=== PATIENT | female | born 1955 | race African-American/Black ===

== ENCOUNTER 2016-12-17 12:20 | Inpatient (IN) | payer MEDICARE, OTHER ==
[~2016-12-17] VITALS: Ht 157.5 cm; Wt 106.6 kg
[~2016-12-17 12:20] MED LIST: DIVA250T4 PO; QUET25TA PO; VENL37.53 PO; ZOLP10TA2 PO
--- NOTE | 2016-12-17 12:25 | NUR ---
PT BIB RA 881, FROM [facility] FOR RECTAL BLEEDING X 3 WEEKS. PT ALSO COMPLAINS OF RECTAL PAIN. PLACED PT ON MONITOR. AWAITING MD ORDER
--- NOTE | 2016-12-17 12:31 | NUR ---
AT BEDSIDE FOR EVAL
--- NOTE | 2016-12-17 12:35 | NUR ---
LFA #20 IV ACCESS. BLOOD SAMPLE COLLECTED SENT TO LAB
--- NOTE | 2016-12-17 12:46 | NUR ---
PT TAKEN TO CT VIA GREG
[2016-12-17 12:47] LABS: BASOPHILS # (AUTO) 0.1 /CMM (0.0-0.2); BASOPHILS % (AUTO) 2.4 % (0.0-2.0); EOSINOPHILS # (AUTO) 0.2 /CMM (0.0-0.7); EOSINOPHILS % (AUTO) 3.5 % (0.0-6.0); HEMATOCRIT 39 % (33-45); HEMOGLOBIN 12.8 g/dL (11.5-14.8); LYMPHOCYTES # (AUTO) 2.4 /CMM (0.8-4.8); LYMPHOCYTES % (AUTO) 43.1 % (20.0-44.0); MEAN CORPUSCULAR HEMOGLOBIN 32 PG (26.0-33.0); MEAN CORPUSCULAR HGB CONC 33 g/dl (31.0-36.0); MEAN CORPUSCULAR VOLUME 98 fL (82-100); MONOCYTES # (AUTO) 0.5 /CMM (0.1-1.30); MONOCYTES % (AUTO) 7.9 % (2.0-12.0); NEUTROPHILS # (AUTO) 2.5 /CMM (1.8-8.9); NEUTROPHILS % (AUTO) 43.1 % (43.0-81.0); PLATELET COUNT (AUTO) 131 /CMM (150-450); RDW COEFFICIENT OF VARIATION 12.4 (11.5-15.0); RED BLOOD CELL COUNT(AUTO) 3.95 MIL/uL (4.0-5.2); WHITE BLOOD COUNT (AUTO) 5.7 K/uL (4.3-11.0)
[2016-12-17] MEDS ORDERED: ONDANSETRON HCL/PF 4 MG/2 ML VIAL ONE (12:50)
[2016-12-17] MEDS ORDERED: IV SET PRIMARY PUMP SET 1 EA INFUS.SET MC ONE ×3 (12:50→15:41)
[2016-12-17] MEDS ORDERED: IV NS 0.9% 1,000 ML ONE (12:50)
[2016-12-17] MEDS ORDERED: HYDROMORPHONE 1 MG/1 ML DISP.SYRIN ONE (12:50)
[2016-12-17] MEDS ORDERED: HYDROMORPHONE INJ 2 MG/ML DISP.SYRIN IV ONE (13:00)
[2016-12-17] MEDS ORDERED: ONDANSETRON HCL/PF 4 MG/2 ML VIAL IVP ONE (13:00)
[2016-12-17] MEDS ORDERED: IV NS 0.9% 1,000 ML BAG IV ONE (13:00)
--- NOTE | 2016-12-17 13:19 | NUR ---
LAB AT BEDSIDE REDRAW BLOOD. FIRST BLOOD SAMPLE HEMOLYZE
--- NOTE | 2016-12-17 13:19 | NUR ---
URINE SAMPLE COLLECTED SENT TO LAB
--- NOTE | 2016-12-17 13:27 | NUR ---
PAGED DR HICKS
[2016-12-17] MEDS ORDERED: FLAGYL/NS RTU 500 MG/100 ML PIGGYBACK IV ONE (13:30)
[2016-12-17] MEDS ORDERED: LEVOFLOXACIN 750 MG /D5W 150ML PIGGYBACK IV ONE (13:30)
[2016-12-17] MEDS ORDERED: METRONIDAZOLE 500MG/ NS 100ML 100 ML IV ONE (13:31)
[2016-12-17] MEDS ORDERED: LEVOFLOXACIN 750 MG /D5W 150ML 150 ML IV ONE (13:31)
[2016-12-17] MEDS ORDERED: SECONDARY IV SET 1 EA INFUS.SET MC ONE ×3 (13:32→21:49)
[2016-12-17 13:35] LABS: APPEARANCE,URINE CLEAR (CLEAR); BILIRUBIN,URINE NEGATIVE (NEGATIVE); BLOOD, URINE NEGATIVE Ery/uL (NEGATIVE); COLOR,URINE YELLOW (YELLOW); KETONES,URINE NEGATIVE (NEGATIVE); LEUKOCYTE ESTERASE ,URINE NEGATIVE (NEGATIVE); NITRITE, URINE NEGATIVE (NEGATIVE); PH,URINE 6.5 (5.0-8.0); PROTEIN,URINE NEGATIVE (NEGATIVE); UGLUCOSE NEGATIVE (NEGATIVE); UROBILINOGEN,URINE 0.2 EU/dL (0.2)
[2016-12-17 13:50] LABS: INR 0.96 (0.87-1.13); PROTHROMBIN TIME 10.3 SECS (9.5-12.7)
--- NOTE | 2016-12-17 13:59 | NUR ---
ADMITTING HOSPITALIST DR HICKS AT BEDSIDE
[2016-12-17] MEDS ORDERED: METO100T3 PO (14:02)
[2016-12-17] MEDS ORDERED: ALLO100T PO (14:02)
[2016-12-17] MEDS ORDERED: DOCU250C75 PO (14:02)
[2016-12-17] MEDS ORDERED: CALC0.253 PO (14:02)
[2016-12-17] MEDS ORDERED: CHOL200026 PO (14:02)
[2016-12-17] MEDS ORDERED: FERR-58 PO (14:02)
[2016-12-17] MEDS ORDERED: CLON0.5T PO (14:02)
[2016-12-17] MEDS ORDERED: QUET200T PO (14:02)
[2016-12-17] MEDS ORDERED: LISI10TA5 PO (14:02)
[2016-12-17] MEDS ORDERED: LEVE500T9 PO (14:02)
[2016-12-17] MEDS ORDERED: AMLO5TAB2 PO (14:02)
[2016-12-17] MEDS ORDERED: SIMV20TA6 PO (14:02)
[2016-12-17] MEDS ORDERED: FOLI1TAB16 PO (14:02)
[2016-12-17] MEDS ORDERED: VENL150C58 PO (14:02)
[2016-12-17] MEDS ORDERED: FURO40TA5 PO (14:02)
--- NOTE | 2016-12-17 14:22 | NUR ---
GAVE REPORT TO MONIKA RIBEIRO [facility] [phone] .
[2016-12-17 14:34] LABS: CREATININE 1.4 mg/dL (0.6-1.3); POTASSIUM 3.1 mmol/L (3.5-5.1)
[2016-12-17] MEDS ORDERED: ACETAMINOPHEN 325 MG TABLET PO PRN (15:00)
[2016-12-17] MEDS ORDERED: ONDANSETRON HCL/PF 4 MG/2 ML VIAL IVP PRN (15:00)
[2016-12-17] MEDS ORDERED: MAGNESIUM HYDROXIDE 30 ML UDC PO PRN (15:00)
[2016-12-17] MEDS ORDERED: MAG HYDROX/AL HYDROX/SIMETH 30 ML UDC PO PRN (15:00)
[2016-12-17] MEDS ORDERED: HYDROCODONE/APAP 5/325MG 1 EACH TABLET PO PRN (15:00)
[2016-12-17] MEDS ORDERED: Z GUARD REMEDY 2 OZ OINT TP PRN (15:00)
[2016-12-17] MEDS ORDERED: FERROUS SULFATE (325 MG) 325 MG/TAB TABLET PO SCH (15:00)
[2016-12-17 15:30] VITALS: BP 118/79
--- NOTE | 2016-12-17 15:30 | NUR ---
MS RN NOTES 61 YEARS OLD FEMALE, ADMITTED FROM [facility] FOR C/O RECTAL BLEED, DX OF COLITIS. PATIENT IS A/O X4, COOPERATIVE, AMBULATORY. V/S TAKEN AND RECORDED. MADE COMFORTABLE IN BED. BREATHING EVEN AND NON LABORED. PLACE CALL LIGHT WITHIN REACH. WILL CONT TO MONITOR.
[2016-12-17 15:37] LABS: BILIRUBIN,TOTAL 0.2 mg/dL (0.2-1.0)
[2016-12-17 15:38] LABS: TOTAL PROTEIN, SERUM 7.4 g/dL (6.4-8.2)
[2016-12-17] MEDS: IV NS 0.9% 1,000 ML IV PRN (15:48)
[2016-12-17] MEDS: PANTOPRAZOLE 40 MG VIAL IV SCH (15:53)
[2016-12-17] MEDS: FUROSEMIDE 40 MG TABLET PO SCH (15:54)
[2016-12-17] MEDS: METOPROLOL TARTRATE 50 MG TABLET PO SCH (15:54)
[2016-12-17] MEDS: clonazePAM 0.5 MG TABLET PO SCH ×2 (15:54→17:00)
[2016-12-17] MEDS: DOCUSATE SODIUM 250 MG CAPSULE PO SCH (15:54)
[2016-12-17] MEDS: VENLAFAXINE XR 150 MG CAP.SR.24H PO SCH (15:54)
[2016-12-17] MEDS: FOLIC ACID 1 MG TABLET PO SCH (15:55)
[2016-12-17] MEDS: AMLODIPINE BESYLATE 5 MG TABLET PO SCH (15:55)
[2016-12-17] MEDS: LEVETIRACETAM (250 MG) 250 MG TABLET PO SCH (15:55)
[2016-12-17] MEDS: CHOLECALCIFEROL 1,000 UNIT TABLET (VIT D3) PO SCH (15:55)
[2016-12-17] MEDS: LISINOPRIL (10MG) 10 MG TABLET PO SCH (16:00)
[2016-12-17] MEDS ORDERED: METRONIDAZOLE 500MG/ NS 100ML 500 MG in PREMIX 1 EA IV SCH (16:00)
--- NOTE | 2016-12-17 16:00 | NUR ---
SKIN INTACT, IV IN LFA G 20 PATENT AND INTACT, FLUSHES WELL.
[2016-12-17 16:11] VITALS: BP 118/79
[2016-12-17] MEDS: CEFTRIAXONE 1 G in IV D5W 50 ML IV SCH (17:06)
--- NOTE | 2016-12-17 17:10 | NUR ---
KLONOPIN 0.5 MG PO GIVEN AT 1554.
--- NOTE | 2016-12-17 17:46 | NUR ---
LOW POTASSIUM LEVEL 3.[address] HICKS, ORDERED TO GIVE POTASSIUM 40MEQ PO X1 NOTED AND AND ACKNOWLEDGED.
[2016-12-17] MEDS ORDERED: POTASSIUM CHLORIDE 20 MEQ TAB.PRT.SR PO ONE (18:00)
--- NOTE | 2016-12-17 18:20 | NUR ---
MS RN CLOSING NOTES PATIENT IN BED, NOT IN DISTRESS. NO C/O PAIN OR ANY DISCOMFORT. ON ANTIBIOTIC WITH NO ADVERSE SIDE EFFECT, AFEBRILE. POTASSIUM SUPPLEMENTED. PATIENT IS ON CLEAR LIQUID DIET. NO BOWEL MOVEMENT TODAY. FOR STOOL OB AND STOOL C-DIFF. PER DR. HANDLEY COLON. IN AM. WILL ENDORSE TO CRYSTAL REPORT DEVELOPER RN FOR CONTINUITY OF CARE.
--- NOTE | 2016-12-17 19:00 | NUR ---
PER DR. HANDLEY NOTES, COLON IN AM. PLACE PATIENT ON NPO BF FOR POSSIBLE SURGERY IN AM. ENDORSED TO BALLROOM DANCE INSTRUCTOR RN.
[2016-12-17 20:00] VITALS: BP 105/70
[2016-12-17] MEDS: SIMVASTATIN 20 MG TABLET PO SCH (21:46)
[2016-12-17] MEDS: QUETIAPINE FUMARATE 100 MG TABLET PO SCH (21:46)
[2016-12-17] MEDS: METRONIDAZOLE 500MG/ NS 100ML 500 MG in PREMIX 1 EA IV SCH (21:46)
[2016-12-17 22:00] VITALS: BP 105/70
[2016-12-17] MEDS ORDERED: ZOLPIDEM TARTRATE 5 MG TABLET PO PRN (22:00)
[2016-12-17] MEDS: ZOLPIDEM TARTRATE 10 MG TABLET PO SCH (22:00)
[2016-12-17] MEDS ORDERED: PEG 3350/NA SULF,BICARB,CL/KCL 4,000 ML BOTTLE PO ONE (22:30)
[2016-12-17] MEDS ORDERED: PEG 3350/NA SULF,BICARB,CL/KCL 4,000 ML BOTTLE ONE (22:32)
--- NOTE | 2016-12-17 23:00 | NUR ---
RN NOTES: 22:50 GOLYTELE SOLUTION IS STARTED PRESCRIBED BY MElysia. CHARGE NURSE IS AWARE.
--- NOTE | 2016-12-18 02:34 | NUR ---
RN NOTES: AMBIEN 10 MG IS HELD BECAUSE PATIENT IS RECEIVING GOLYTELY. PATIENT USES BEDSIDE COMMODE FREQUENTLY. SO AMBIENN IS HELD FOR PATIENT SAFETY.WILL CONTINUE TO MONITOR.
[2016-12-18] MEDS: METRONIDAZOLE 500MG/ NS 100ML 500 MG in PREMIX 1 EA IV SCH ×3 (04:41→21:01)
--- NOTE | 2016-12-18 07:40 | NUR ---
RN OPEN NOTES RECEIVED PATIENT AWAKE LYING IN BED. A/O X3. NO SIGNS OF DISTRESS OR DISCOMFORT. BREATHING EVEN AND UNLABORED. IV ACCESS IN LFA PATENT AND INTACT. NO SIGNS OF REDNESS OR INFILTRATION. CONTINUED ON PAIN MANAGEMENT, IN NO APPARENT PAIN AT THIS TIME. PER HONING MACHINE TRY OUT SETTER TO OBTAIN COLONOSCOPY CONSENT, WILL CONTINUE TO MONITOR
[2016-12-18 07:47] LABS: BASOPHILS % (AUTO) 0.3 % (0.0-2.0); EOSINOPHILS # (AUTO) 0.2 /CMM (0.0-0.7); HEMATOCRIT 35 % (33-45); HEMOGLOBIN 11.9 g/dL (11.5-14.8); LYMPHOCYTES # (AUTO) 1.6 /CMM (0.8-4.8); LYMPHOCYTES % (AUTO) 39.2 % (20.0-44.0); MEAN CORPUSCULAR HEMOGLOBIN 33 PG (26.0-33.0); MEAN CORPUSCULAR HGB CONC 34 g/dl (31.0-36.0); MEAN CORPUSCULAR VOLUME 98 fL (82-100); MONOCYTES # (AUTO) 0.4 /CMM (0.1-1.30); MONOCYTES % (AUTO) 10.1 % (2.0-12.0); NEUTROPHILS # (AUTO) 1.9 /CMM (1.8-8.9); NEUTROPHILS % (AUTO) 46.4 % (43.0-81.0); PLATELET COUNT (AUTO) 124 /CMM (150-450); RDW COEFFICIENT OF VARIATION 12.9 (11.5-15.0); RED BLOOD CELL COUNT(AUTO) 3.59 MIL/uL (4.0-5.2); WHITE BLOOD COUNT (AUTO) 4.1 K/uL (4.3-11.0)
[2016-12-18 07:52] LABS: ALBUMIN 2.5 g/dL (3.4-5.0); BILIRUBIN,TOTAL 0.2 mg/dL (0.2-1.0); CALCIUM, SERUM 8.2 mg/dL (8.5-10.1); CREATININE 1.4 mg/dL (0.6-1.3); MAGNESIUM 1.8 mg/dL (1.8-2.4); PHOSPHORUS 3.6 mg/dL (2.5-4.9); POTASSIUM 3.7 mmol/L (3.5-5.1); TOTAL PROTEIN, SERUM 6.2 g/dL (6.4-8.2)
[2016-12-18 08:00] VITALS: BP 126/70
--- NOTE | 2016-12-18 08:00 | NUR ---
RN NOTES PT CONTINUED ON NPO FOR PROCEDURE, AM MEDS NON ADMINISTERED ORDERED, WILL CONTINUE TO MONITOR PT AWARE.
[2016-12-18] MEDS: PANTOPRAZOLE 40 MG VIAL IV SCH (08:40)
[2016-12-18] MEDS: DOCUSATE SODIUM 250 MG CAPSULE PO SCH (08:40)
[2016-12-18] MEDS: IV NS 0.9% 1,000 ML IV PRN (08:40)
[2016-12-18] MEDS: VENLAFAXINE XR 150 MG CAP.SR.24H PO SCH (08:40)
[2016-12-18] MEDS: FOLIC ACID 1 MG TABLET PO SCH (08:41)
[2016-12-18] MEDS: AMLODIPINE BESYLATE 5 MG TABLET PO SCH ×2 (08:41→16:23)
[2016-12-18] MEDS: FUROSEMIDE 40 MG TABLET PO SCH ×2 (08:41→16:24)
[2016-12-18] MEDS: METOPROLOL TARTRATE 50 MG TABLET PO SCH ×2 (08:41→16:24)
[2016-12-18] MEDS: LEVETIRACETAM (250 MG) 250 MG TABLET PO SCH (08:41)
[2016-12-18] MEDS: clonazePAM 0.5 MG TABLET PO SCH ×2 (08:41→16:23)
[2016-12-18] MEDS: LISINOPRIL (10MG) 10 MG TABLET PO SCH ×2 (08:42→16:23)
[2016-12-18] MEDS: CALCITRIOL 0.25 MCG CAPSULE PO SCH (08:42)
[2016-12-18] MEDS: CHOLECALCIFEROL 1,000 UNIT TABLET (VIT D3) PO SCH (08:42)
[2016-12-18] MEDS: ALLOPURINOL 100 MG TABLET PO SCH (08:42)
--- NOTE | 2016-12-18 09:30 | NUR ---
RN NOTES PATIENT STATING DOES NOT WANT TO DO PHYSICAL THERAPY REVIEWED MD ORDERS WITH PT, REINFORCED NURSING EDUCATION PT WITH VERBAL UNDERSTANDING STATES "I WILL WALK BUT I WILL NOT BEND MY KNEE OR DO EXERCISES" PT REASSURED WILL CONTINUE PRN PAIN MEDICATION ORDERED AND CONTINUE TO MONITOR, PT ADVISED TO CALL FOR ASSISTANCE WHEN NEEDED Addendum: 12/18/16 at 1444 by LIAM RODRIGUEZ RN QUINTIN NOTES AMMENDMENT INCORRECT ENTRY
--- NOTE | 2016-12-18 13:50 | NUR ---
RN NOTES PT TAKEN TO OR FOR PROCEDURE IN STABLE CONDITION WILL CONTINUE TO MONITOR
[2016-12-18 16:00] VITALS: BP 142/85
[2016-12-18] MEDS: CEFTRIAXONE 1 G in IV D5W 50 ML IV SCH (17:19)
--- NOTE | 2016-12-18 19:02 | NUR ---
RN NOTES PATIENT AWAKE LYING IN BED. A/O X3. NO SIGNS OF DISTRESS OR DISCOMFORT. BREATHING EVEN AND UNLABORED. IV ACCESS PATENT AND INTACT. NO SIGNS OF REDNESS OR INFILTRATION. DENIES ANY PAIN OR DISCOMFORT AT THIS TIME.CALL LIGHT WITHIN EASY REACH SIDE RAILS UPX2 FOR SAFETY WILL CONTINUE TO MONITOR AND ENDORSE TO NEXT SHIFT FOR CONTINUITY OF CARE
--- NOTE | 2016-12-18 20:16 | NUR ---
MS MASTER DEPUTY SHERIFF COURT SECURITY INITIAL NOTES RECEIVED REPORT FROM AM NURSE , CHECKED PT SHE'S AWAKE SITTING ON HER BED WHILE WATCHING TV. DENIES ANY PAIN OR ANY DISCOMFORT. STILL WITH IVF OF NS AT 75ML/HR ON HER LEFT FOREARM, PATENT AND INTACT. NO REDNESS NOTED. AWARE OF HER MEDICATION TONIGHT. KEPT HER COMFORTABLE AT ALL TIMES. PLACE CALL LIGHT AT REACH. WILL CONTINUE TO MONITOR.
[2016-12-18 20:36] VITALS: BP 151/79
[2016-12-18 20:39] VITALS: BP 151/79
[2016-12-18] MEDS: SIMVASTATIN 20 MG TABLET PO SCH (21:43)
[2016-12-18] MEDS: QUETIAPINE FUMARATE 100 MG TABLET PO SCH (21:43)
[2016-12-18] MEDS: ZOLPIDEM TARTRATE 10 MG TABLET PO SCH (21:43)
--- NOTE | 2016-12-18 22:30 | NUR ---
TOUR MANAGER/NOTES COLONOSCOPY DONE ALREADY. NO MORE GOLYTELY NEEDED. PT ON LOW FAT DIET .
--- NOTE | 2016-12-19 01:15 | NUR ---
LABORER AIRPORT MAINTENANCE/NOTES PT SLEEPING COMFORTABLY IN BED WITHOUT ANY ACUTE DISTRESS NOTED, BREATHING EVEN AND NON-LABORED, NOT IN ANY ACUTE DISTRESS NOTED. IVF STILL INFUSING. KEPT HER WARM AND COMFORTABLE AT ALL TIMES. PLACE CALL LIGHT AT REACH. WILL CONTINUE TO MONITOR.
[2016-12-19] MEDS: IV NS 0.9% 1,000 ML IV PRN (05:06)
[2016-12-19] MEDS: METRONIDAZOLE 500MG/ NS 100ML 500 MG in PREMIX 1 EA IV SCH (05:17)
--- NOTE | 2016-12-19 06:47 | NUR ---
SEED LABORATORY TECHNICIAN NOTES PT REMAINS SLEEPING COMFORTABLY IN BED WITHOUT ANY ACUTE DISTRESS NOTED, RESPIRATION EVEN AND NON-LABORED, IVF OF NS AT 75ML/HR STILL INFUSING. STABLE MIGUELINA THE NIGHT AND SLEPT WELL. ALL DUE MEDS GIVEN AND ALL NEEDS MET. KEPT HER WARM AND COMFORTABLE AT ALL TIMES PLACE CALL LIGHT AT REACH. WILL ENDORSE TO AM NURSE FOR CONTINUITY OF CARE.
--- NOTE | 2016-12-19 07:30 | NUR ---
RN NOTES RECEIVED PT IN BED. SLEEPING BUT EASY TO AROUSE. IN NO APPARENT DISTRESS. RESPIRATIONS EVEN AND UNLABORED. CLEAN AND DRY AT THIS TIME. WILL CONTINUE TO MONITOR. CALL LIGHT WITHIN REACH
[2016-12-19 08:00] VITALS: BP 121/91
[2016-12-19] MEDS: DOCUSATE SODIUM 250 MG CAPSULE PO SCH (09:14)
[2016-12-19] MEDS: PANTOPRAZOLE 40 MG VIAL IV SCH (09:14)
[2016-12-19] MEDS: FOLIC ACID 1 MG TABLET PO SCH (09:14)
[2016-12-19] MEDS: CHOLECALCIFEROL 1,000 UNIT TABLET (VIT D3) PO SCH (09:14)
[2016-12-19] MEDS: clonazePAM 0.5 MG TABLET PO SCH (09:14)
[2016-12-19] MEDS: METOPROLOL TARTRATE 50 MG TABLET PO SCH (09:14)
[2016-12-19] MEDS: LEVETIRACETAM (250 MG) 250 MG TABLET PO SCH (09:14)
[2016-12-19] MEDS: VENLAFAXINE XR 150 MG CAP.SR.24H PO SCH (09:14)
[2016-12-19] MEDS: CALCITRIOL 0.25 MCG CAPSULE PO SCH (09:14)
[2016-12-19 09:15] VITALS: BP 121/91
[2016-12-19] MEDS: AMLODIPINE BESYLATE 5 MG TABLET PO SCH (09:15)
[2016-12-19] MEDS: LISINOPRIL (10MG) 10 MG TABLET PO SCH (09:15)
[2016-12-19] MEDS: FUROSEMIDE 40 MG TABLET PO SCH (09:15)
[2016-12-19] MEDS: ALLOPURINOL 100 MG TABLET PO SCH (09:15)
--- NOTE | 2016-12-19 10:00 | NUR ---
RN NOTES PT TOLERATED BREAKFAST- ATE WITH GOOD APPETITE. TOLERATED ALL DUE MEDS. PT WITH NO REPORTED ABDOMINAL PAIN,. NAUSEA OR VOMITING. WILL CONTINUE TO MONITOR
[2016-12-19] MEDS ORDERED: METRONIDAZOLE 500 MG TABLET PO SCH (13:00)
--- NOTE | 2016-12-19 13:30 | NUR ---
RN NOTES PT WITH NEW ORDER FOR DISCHARGE TO HOME. DISCHARGE PAPERS AND INSTRUCTIONS DONE VIA [employer]. SKIN AND BODY ASSESSMENT DONE. PHOTOS TAKEN AND PLACED IN CHART. WILL ARRANGE TRANSPORTATION VIA TAXI
--- NOTE | 2016-12-19 14:01 | NUR ---
RN NOTES PT DISCHARGED ORDERED. IN NO DISTRESS. VS WNL.
== END 2016-12-19 14:00 | disposition home or self-care (01) | DRG 371 ==
LOC: ER 12:22 → MED 14:34
PROVIDERS: ADMIT Internal Medicine; ATTEND Internal Medicine
PROC: 0DBE8ZX Excision of Large Intestine, Via Natural or Artificial Opening Endoscopic, Diagnostic (ICD-10-PCS; principal; 2016-12-18 14:20)
DX: A04.7 Enterocolitis due to Clostridium difficile (principal); N17.0 Acute kidney failure with tubular necrosis; Q61.3 Polycystic kidney, unspecified; I10 Essential (primary) hypertension; I25.10 Atherosclerotic heart disease of native coronary artery without angina pectoris; C06.9 Malignant neoplasm of mouth, unspecified; K57.90 Diverticulosis of intestine, part unspecified, without perforation or abscess without bleeding; I11.0 Hypertensive heart disease with heart failure; I50.9 Heart failure, unspecified; Z86.19 Personal history of other infectious and parasitic diseases; K57.30 Diverticulosis of large intestine without perforation or abscess without bleeding; K76.89 Other specified diseases of liver
CPT/HCPCS: 36415; 71010-TC; 80048-TC; 80061-TC; 80076-TC; 81000-TC; 82272-TC; 83690-TC; 83735-TC; 84100-TC; 85025-TC; 85730-TC; 86850-TC; 87081-TC; 88305-TC; A4216; A4606; C9113; J0696; J1170; J1956; J2405; J3490; J7030; J7060; Z7610

== ENCOUNTER 2017-01-12 14:14 | Emergency (ER) | payer MEDICARE, OTHER ==
[~2017-01-12] VITALS: Ht 167.6 cm; Wt 131.5 kg
[~2017-01-12 14:14] MED LIST changes: +ALLO100T PO; +AMLO5TAB2 PO; +CALC0.253 PO; +CHOL200026 PO; +CLON0.5T PO; -DIVA250T4 PO; +DOCU250C75 PO; +FERR-58 PO; +FOLI1TAB16 PO; +FURO40TA5 PO; +LEVE500T9 PO; +LISI10TA5 PO; +METO100T3 PO; +QUET200T PO; -QUET25TA PO; +SIMV20TA6 PO; +VENL150C58 PO; -VENL37.53 PO
--- NOTE | 2017-01-12 14:38 | NUR ---
PT TO ED ROOM 06. LEFT FLANK PAIN X FEW DAYS, WORSE SINCE THIS AM. A/A/O. VS WNL. SIDE RAISL UP. HOB ELEVATED. CONNECTED TO MONITOR. SEEN AND EVALUATED BY ED PROVIDER.
[2017-01-12] MEDS ORDERED: IV NS 0.9% 1,000 ML ONE (14:43)
[2017-01-12] MEDS ORDERED: IV SET PRIMARY 1 EA INFUS.SET MC ONE (14:43)
[2017-01-12 14:55] LABS: BASOPHILS # (AUTO) 0.1 /CMM (0.0-0.2); BASOPHILS % (AUTO) 1.8 % (0.0-2.0); EOSINOPHILS # (AUTO) 0.1 /CMM (0.0-0.7); EOSINOPHILS % (AUTO) 2.2 % (0.0-6.0); HEMATOCRIT 39 % (33-45); HEMOGLOBIN 12.9 g/dL (11.5-14.8); LYMPHOCYTES # (AUTO) 1.6 /CMM (0.8-4.8); LYMPHOCYTES % (AUTO) 29.8 % (20.0-44.0); MEAN CORPUSCULAR HEMOGLOBIN 32 PG (26.0-33.0); MEAN CORPUSCULAR HGB CONC 33 g/dl (31.0-36.0); MEAN CORPUSCULAR VOLUME 98 fL (82-100); MONOCYTES # (AUTO) 0.6 /CMM (0.1-1.30); MONOCYTES % (AUTO) 10.8 % (2.0-12.0); NEUTROPHILS % (AUTO) 55.4 % (43.0-81.0); PLATELET COUNT (AUTO) 142 /CMM (150-450); RDW COEFFICIENT OF VARIATION 11.9 (11.5-15.0); RED BLOOD CELL COUNT(AUTO) 3.98 MIL/uL (4.0-5.2); WHITE BLOOD COUNT (AUTO) 5.4 K/uL (4.3-11.0)
[2017-01-12] MEDS ORDERED: IV NS 0.9% 1,000 ML BAG IV ONE (15:00)
[2017-01-12 15:01] LABS: CALCIUM, SERUM 8.6 mg/dL (8.5-10.1); CREATININE 1.4 mg/dL (0.6-1.3)
[2017-01-12 15:05] LABS: INR 0.93 (0.87-1.13); PROTHROMBIN TIME 9.7 SECS (9.5-12.7)
[2017-01-12 15:07] LABS: ALBUMIN 2.8 g/dL (3.4-5.0); BILIRUBIN,DIRECT 0.1 mg/dL (0.0-0.2); BILIRUBIN,TOTAL 0.3 mg/dL (0.2-1.0); TOTAL PROTEIN, SERUM 7.4 g/dL (6.4-8.2)
[2017-01-12] MEDS ORDERED: IOHEXOL-300 100 ML VIAL IV ONE (15:13)
[2017-01-12] MEDS ORDERED: IV NS 0.9% 250 ML IV ONE (15:13)
[2017-01-12] MEDS ORDERED: CT SWABBABLE VALVE TRANS SET 1 EA INFUS.SET MC ONE (15:13)
--- NOTE | 2017-01-12 16:20 | NUR ---
URINE SAMPLE COLLECTED AND SEND TO LAB
--- NOTE | 2017-01-12 16:29 | NUR ---
Patient is resting comfortably in bed with eyes closed. Easily aroused. VSS
[2017-01-12 16:40] LABS: APPEARANCE,URINE Clear (CLEAR); BILIRUBIN,URINE Negative (NEGATIVE); BLOOD, URINE Negative Ery/uL (NEGATIVE); COLOR,URINE Yellow (YELLOW); KETONES,URINE Negative (NEGATIVE); LEUKOCYTE ESTERASE ,URINE Negative (NEGATIVE); NITRITE, URINE Negative (NEGATIVE); PROTEIN,URINE Negative (NEGATIVE); UGLUCOSE Negative (NEGATIVE); UROBILINOGEN,URINE 0.2 EU/dL (0.2)
--- NOTE | 2017-01-12 16:53 | NUR ---
CALLED PRASANNA FOR READ ON CT
[2017-01-12] MEDS ORDERED: ONDANSETRON HCL/PF 4 MG/2 ML VIAL IV ONE (17:30)
[2017-01-12] MEDS ORDERED: MORPHINE SULFATE INJ 2 MG/ML DISP.SYRIN IV ONE (17:30)
[2017-01-12] MEDS ORDERED: ONDANSETRON HCL/PF 4 MG/2 ML VIAL ONE (17:43)
[2017-01-12] MEDS ORDERED: MORPHINE SULFATE INJ 4 MG/ML DISP.SYRIN ONE (17:43)
--- NOTE | 2017-01-12 18:28 | NUR ---
Patient discharged to home in stable condition. Written and verbal after care instructions given. Patient verbalizes understanding of instruction.IV removed. Catheter intact and site benign. Pressure and 4x4 applied to site. No bleeding noted. ambulatory with a steady gait
[2017-01-12 18:29] VITALS: BP 130/75
== END 2017-01-12 18:29 | disposition home or self-care (01) ==
LOC: ER 14:15
DX: R10.9 Unspecified abdominal pain (principal); I10 Essential (primary) hypertension
CPT/HCPCS: 36415; 80048-TC; 80076-TC; 81000-TC; 83690-TC; 85025-TC; 85730-TC; A4606; J2270; J2405; J7030; J7050; Q9967; Z7610

== ENCOUNTER 2017-08-25 08:39 | Emergency (ER) | payer MEDICARE, OTHER ==
[~2017-08-25] VITALS: Ht 165.1 cm; Wt 92.1 kg
--- NOTE | 2017-08-25 08:40 | NUR ---
PARESH 889 FROM [facility] FOR DIARRHEA X 3 DAYS, DENIES NAUSEA AND VOMITTING. PT IS AFEBRILE. VSS
[2017-08-25] MEDS ORDERED: ONDANSETRON HCL/PF 4 MG/2 ML VIAL ONE (08:54)
[2017-08-25] MEDS ORDERED: DICYCLOMINE HCL INJ 20 MG/2 ML AMPUL IM ONE ×2 (08:54→09:00)
[2017-08-25] MEDS ORDERED: ONDANSETRON HCL/PF 4 MG/2 ML VIAL IVP ONE (09:00)
[2017-08-25] MEDS ORDERED: IV NS 0.9% 1,000 ML BAG IV ONE (09:00)
--- NOTE | 2017-08-25 09:00 | NUR ---
IV ACCESS STARTED. BLOOD DRAWN FOR LABS. MEDICATED ORDERED.
[2017-08-25 09:01] LABS: BASOPHILS % (AUTO) 0.3 % (0.0-2.0); EOSINOPHILS # (AUTO) 0.1 /CMM (0.0-0.7); EOSINOPHILS % (AUTO) 1.8 % (0.0-6.0); HEMATOCRIT 39 % (33-45); HEMOGLOBIN 12.9 g/dL (11.5-14.8); LYMPHOCYTES # (AUTO) 0.9 /CMM (0.8-4.8); LYMPHOCYTES % (AUTO) 22.3 % (20.0-44.0); MEAN CORPUSCULAR HEMOGLOBIN 33 PG (26.0-33.0); MEAN CORPUSCULAR HGB CONC 34 g/dl (31.0-36.0); MEAN CORPUSCULAR VOLUME 99 fL (82-100); MONOCYTES # (AUTO) 0.4 /CMM (0.1-1.30); MONOCYTES % (AUTO) 10.4 % (2.0-12.0); NEUTROPHILS # (AUTO) 2.5 /CMM (1.8-8.9); NEUTROPHILS % (AUTO) 65.2 % (43.0-81.0); PLATELET COUNT (AUTO) 143 /CMM (150-450); RDW COEFFICIENT OF VARIATION 13.6 (11.5-15.0); RED BLOOD CELL COUNT(AUTO) 3.89 MIL/uL (4.0-5.2); WHITE BLOOD COUNT (AUTO) 3.8 K/uL (4.3-11.0)
--- NOTE | 2017-08-25 09:05 | NUR ---
PT TAKEN TO CT.
[2017-08-25 09:12] LABS: CALCIUM, SERUM 9.2 mg/dL (8.5-10.1); CREATININE 1.5 mg/dL (0.6-1.3)
[2017-08-25 09:17] LABS: BILIRUBIN,DIRECT 0.1 mg/dL (0.0-0.2); BILIRUBIN,TOTAL 0.2 mg/dL (0.2-1.0); TOTAL PROTEIN, SERUM 7.4 g/dL (6.4-8.2)
--- NOTE | 2017-08-25 09:50 | NUR ---
CALLED TRANSPORT ETA 45MIN PER CHET TRIP NUMBER [id number]
[2017-08-25] MEDS ORDERED: POTASSIUM CHLORIDE 20 MEQ TAB.PRT.SR PO ONE ×2 (09:51→10:00)
--- NOTE | 2017-08-25 10:22 | NUR ---
IV removed. Catheter intact and site benign. Pressure and 4x4 applied to site. No bleeding noted.
--- NOTE | 2017-08-25 10:22 | NUR ---
Patient discharged to home in stable condition. Written and verbal after care instructions given. Patient verbalizes understanding of instruction.
--- NOTE | 2017-08-25 11:00 | NUR ---
[facility]
[2017-08-25 11:15] VITALS: BP 134/89
== END 2017-08-25 11:16 | disposition home or self-care (01) ==
LOC: ER 08:41
DX: R10.84 Generalized abdominal pain (principal); R19.7 Diarrhea, unspecified; I10 Essential (primary) hypertension; J44.9 Chronic obstructive pulmonary disease, unspecified; F20.0 Paranoid schizophrenia; B19.20 Unspecified viral hepatitis C without hepatic coma
CPT/HCPCS: 36415; 74176; 80048; 80076; 83690; 85025; 96361; 96372; 96374; 99285; A4606; J0500; J2405; J7030; Z7610

== ENCOUNTER 2017-08-27 08:55 | Emergency (ER) | payer MEDICARE, OTHER ==
[~2017-08-27] VITALS: Ht 165.1 cm; Wt 90.7 kg
[~2017-08-27 08:55] MED LIST changes: +DOCU250C14 PO; -DOCU250C75 PO; +METO100T14 PO; -METO100T3 PO
--- NOTE | 2017-08-27 09:05 | NUR ---
AAOX3, [id number] FROM [facility] FOR ABD PAIN W/ N/V LAST NIGHT. RR IS EVEN AND UNLABORED WITH NAD NOTED. SKIN IS WARM AND DRY. AWAITING MD FOR EVAL.
[2017-08-27] MEDS ORDERED: ONDANSETRON HCL/PF 4 MG/2 ML VIAL ONE (09:27)
[2017-08-27 09:30] LABS: BASOPHILS % (AUTO) 0.2 % (0.0-2.0); EOSINOPHILS # (AUTO) 0.1 /CMM (0.0-0.7); EOSINOPHILS % (AUTO) 1.6 % (0.0-6.0); HEMATOCRIT 40 % (33-45); HEMOGLOBIN 13.4 g/dL (11.5-14.8); LYMPHOCYTES # (AUTO) 0.9 /CMM (0.8-4.8); LYMPHOCYTES % (AUTO) 17.4 % (20.0-44.0); MEAN CORPUSCULAR HEMOGLOBIN 33 PG (26.0-33.0); MEAN CORPUSCULAR HGB CONC 34 g/dl (31.0-36.0); MEAN CORPUSCULAR VOLUME 99 fL (82-100); MONOCYTES # (AUTO) 0.6 /CMM (0.1-1.30); MONOCYTES % (AUTO) 12.4 % (2.0-12.0); NEUTROPHILS # (AUTO) 3.5 /CMM (1.8-8.9); NEUTROPHILS % (AUTO) 68.4 % (43.0-81.0); PLATELET COUNT (AUTO) 138 /CMM (150-450); RDW COEFFICIENT OF VARIATION 13.4 (11.5-15.0); RED BLOOD CELL COUNT(AUTO) 4.05 MIL/uL (4.0-5.2); WHITE BLOOD COUNT (AUTO) 5.1 K/uL (4.3-11.0)
[2017-08-27] MEDS ORDERED: ONDANSETRON HCL/PF 4 MG/2 ML VIAL IVP ONE ×2 (09:30→10:00)
[2017-08-27 09:52] LABS: TROPONIN I < 0.017 ng/mL (0.00-0.056)
[2017-08-27 09:55] LABS: ALANINE AMINOTRANSFERASE 11 U/L (12-78); ALBUMIN 2.9 g/dL (3.4-5.0); ALKALINE PHOSPHATASE 54 U/L (46-116); ASPARTATE AMINOTRANSFERASE 20 U/L (15-37); BILIRUBIN,DIRECT 0.1 mg/dL (0.0-0.2); BILIRUBIN,TOTAL 0.2 mg/dL (0.2-1.0); CALCIUM, SERUM 8.7 mg/dL (8.5-10.1); CARBON DIOXIDE 29 mmol/L (21-32); CREATININE 1.4 mg/dL (0.6-1.3); GLUCOSE 116 mg/dL (74-106); LIPASE 114 U/L (73-393); TOTAL PROTEIN, SERUM 7.4 g/dL (6.4-8.2); UREA NITROGEN, BLOOD 7 mg/dL (7-18)
[2017-08-27] MEDS ORDERED: IV NS 0.9% 1,000 ML BAG IV ONE (10:00)
[2017-08-27] MEDS ORDERED: DICYCLOMINE HCL 10 MG CAPSULE PO ONE ×2 (10:00)
[2017-08-27 10:25] LABS: INR 0.99 (0.87-1.13); PROTHROMBIN TIME 10.3 SECS (9.5-12.7)
[2017-08-27 10:30] LABS: CHLORIDE 103 mmol/L (98-107); SODIUM SERUM 140 mmol/L (136-145)
--- NOTE | 2017-08-27 10:30 | NUR ---
Patient is resting comfortably in bed with eyes closed. Easily aroused. VSS
[2017-08-27 10:31] LABS: POTASSIUM 2.8 mmol/L (3.5-5.1)
[2017-08-27] MEDS ORDERED: IOHEXOL-350 100 ML VIAL IV ONE (10:52)
[2017-08-27] MEDS ORDERED: IV NS 0.9% 250 ML IV ONE (10:52)
--- NOTE | 2017-08-27 11:15 | NUR ---
Patient is resting comfortably in bed with eyes closed. Easily aroused. VSS
--- NOTE | 2017-08-27 13:00 | NUR ---
CALLED PRASANNA FOR SECOND TIME FOR CTA ABDOMEN READ
[2017-08-27 13:20] LABS: APPEARANCE,URINE Clear (CLEAR); BILIRUBIN,URINE Negative (NEGATIVE); BLOOD, URINE Trace-lysed Ery/uL (NEGATIVE); COLOR,URINE Yellow (YELLOW); KETONES,URINE Trace (NEGATIVE); LEUKOCYTE ESTERASE ,URINE Trace (NEGATIVE); NITRITE, URINE Negative (NEGATIVE); PROTEIN,URINE Negative (NEGATIVE); UGLUCOSE Negative (NEGATIVE); UROBILINOGEN,URINE 0.2 EU/dL (0.2)
[2017-08-27] MEDS ORDERED: POTASSIUM CHLORIDE 20 MEQ TAB.PRT.SR PO ONE ×2 (13:30→13:44)
[2017-08-27 13:35] LABS: BACTERIA,URINE Few /HPF (None Seen); SQUAMOUS EPITHELIAL CELL,UR Few /HPF (None Seen)
--- NOTE | 2017-08-27 14:19 | NUR ---
CALLED MICHELLE FOR JOSE JAMES 1500 - TRIP# [id number]
[2017-08-27] MEDS ORDERED: METRONIDAZOLE 500 MG TABLET PO ONE (14:30)
[2017-08-27] MEDS ORDERED: CIPROFLOXACIN HCL 500 MG TABLET PO ONE (14:30)
[2017-08-27] MEDS ORDERED: CIPROFLOXACIN HCL 500 MG TABLET ONE (14:33)
[2017-08-27] MEDS ORDERED: METRONIDAZOLE 500 MG TABLET ONE (14:34)
--- NOTE | 2017-08-27 14:50 | NUR ---
IV removed. Catheter intact and site benign. Pressure and 4x4 applied to site. No bleeding noted.
--- NOTE | 2017-08-27 15:17 | NUR ---
Patient discharged to home in stable condition. Written and verbal after care instructions given. Patient verbalizes understanding of instruction.
[2017-08-27 15:18] VITALS: BP 128/94
== END 2017-08-27 15:19 | disposition home or self-care (01) ==
LOC: ER 08:57
DX: K57.32 Diverticulitis of large intestine without perforation or abscess without bleeding (principal); E87.6 Hypokalemia; I10 Essential (primary) hypertension; J44.9 Chronic obstructive pulmonary disease, unspecified; F32.9 Major depressive disorder, single episode, unspecified; F20.9 Schizophrenia, unspecified; Z86.19 Personal history of other infectious and parasitic diseases
CPT/HCPCS: 36415; 74175; 80048; 80076; 81001; 83605; 83690; 84484; 85025; 85730; 87040 ×2; 87086; 93005; 96361; 96374; 99285; A4606; J2405; J7030; J7050; Q9967; 81000-TC; 87186-TC; Z7610

== ENCOUNTER 2021-10-09 04:11 | Inpatient (IN) | payer MEDICARE, OTHER ==
[~2021-10-09] VITALS: Ht 172.7 cm; Wt 102.2 kg
[~2021-10-09 04:11] MED LIST changes: +AMLO-212 PO; -AMLO5TAB2 PO; -FERR-58 PO; +FERR325T24 PO; +LISI10TA29 PO; -LISI10TA5 PO; +SIMV-46 PO; -SIMV20TA6 PO
--- NOTE | 2021-10-09 04:24 | NUR ---
PATIENT BIBRA 839 C/O ABD AND RECTAL PAIN STARTED LAST NIGHT. PATIENT A/O X3, RR EVEN AND UNLABORED, NO SOB NOTED. PATIENT CONNECTED TO MONITORS. PT TO ER BED 10
--- NOTE | 2021-10-09 04:27 | NUR ---
LAW BAILEY AT PT'S BEDSIDE.
--- NOTE | 2021-10-09 04:29 | NUR ---
STORE PLANNER AT PT'S BEDSIDE
--- NOTE | 2021-10-09 04:36 | NUR ---
RAC #20G S/L; PATENT AND INTACT. BLOOD COLLECTED AND SENT TO LAB
[2021-10-09 04:39] LABS: BASOPHILS % (AUTO) 0.5 % (0.0-2.0); EOSINOPHILS % (AUTO) 1.2 % (0.0-6.0); HEMATOCRIT 39 % (33-45); HEMOGLOBIN 13.2 g/dL (11.5-14.8); LYMPHOCYTES # (AUTO) 1.3 K/uL (0.8-4.8); LYMPHOCYTES % (AUTO) 15.9 % (20.0-44.0); MEAN CORPUSCULAR HGB CONC 34 g/dl (31.0-36.0); MEAN CORPUSCULAR VOLUME 99 fL (82-100); MONOCYTES # (AUTO) 0.6 K/uL (0.1-1.30); MONOCYTES % (AUTO) 6.9 % (2.0-12.0); NEUTROPHILS # (AUTO) 6.2 K/uL (1.8-8.9); NEUTROPHILS % (AUTO) 75.5 % (43.0-81.0); PLATELET COUNT (AUTO) 155 K/uL (150-450); RED BLOOD CELL COUNT(AUTO) 3.94 MIL/uL (4.0-5.2); WHITE BLOOD COUNT (AUTO) 8.2 K/uL (4.3-11.0)
[2021-10-09] MEDS ORDERED: MORPHINE SULFATE INJ 4 MG/ML DISP.SYRIN ONE (04:50)
[2021-10-09] MEDS ORDERED: ONDANSETRON HCL/PF 4 MG/2 ML VIAL ONE (04:50)
[2021-10-09 04:52] LABS: CALCIUM, SERUM 8.7 mg/dL (8.5-10.1); CARBON DIOXIDE 26 mmol/L (21-32); CHLORIDE 104 mmol/L (98-107); CREATININE 2.1 mg/dL (0.6-1.3); GLUCOSE 142 mg/dL (74-106); POTASSIUM 3.2 mmol/L (3.5-5.1); SODIUM SERUM 136 mmol/L (136-145); UREA NITROGEN, BLOOD 28 mg/dL (7-18)
--- NOTE | 2021-10-09 04:54 | NUR ---
PT UNABLE TO GIVE URINE AT THIS TIME. WILL ATTEMPT COLLECTION AGAIN.
[2021-10-09 04:57] LABS: ALANINE AMINOTRANSFERASE 17 U/L (12-78); ALKALINE PHOSPHATASE 86 U/L (46-116); ASPARTATE AMINOTRANSFERASE 23 U/L (15-37); BILIRUBIN,DIRECT 0.1 mg/dL (0.0-0.2); BILIRUBIN,TOTAL 0.2 mg/dL (0.2-1.0); LIPASE 162 U/L (73-393); TOTAL PROTEIN, SERUM 7.6 g/dL (6.4-8.2)
[2021-10-09] MEDS ORDERED: ONDANSETRON HCL/PF - ER 4 MG/2 ML VIAL IV ONE (05:00)
[2021-10-09] MEDS ORDERED: MORPHINE SULFATE INJ 2 MG/ML DISP.SYRIN IV ONE ×2 (05:00→09:00)
[2021-10-09] MEDS ORDERED: IV NS 0.9% 1,000 ML IV ONE (05:00)
[2021-10-09] MEDS ORDERED: IOHEXOL-300 100 ML VIAL IV ONE (05:03)
[2021-10-09] MEDS ORDERED: CT SWABBABLE VALVE TRANS SET 1 EA INFUS.SET MC ONE (05:03)
--- NOTE | 2021-10-09 05:13 | NUR ---
PT TRANSPORTED TO CT
--- NOTE | 2021-10-09 05:41 | NUR ---
PT RETURNED FROM CT
--- NOTE | 2021-10-09 06:29 | NUR ---
URINE COLLECTED AND SENT TO LAB
[2021-10-09] MEDS ORDERED: FLAGYL/NS RTU 500 MG/100 ML PIGGYBACK IV ONE (07:00)
[2021-10-09] MEDS ORDERED: PIPERACILLIN /TAZOBACTAM 3.375 G in IV D5W 50 ML IV ONE (07:00)
[2021-10-09] MEDS ORDERED: PIPERACILLIN /TAZOBACTAM 3.375 G VIAL IV ONE (07:02)
[2021-10-09 07:20] LABS: BILIRUBIN,URINE NEGATIVE (NEGATIVE); COLOR,URINE YELLOW (YELLOW); LEUKOCYTE ESTERASE ,URINE TRACE (NEGATIVE); NITRITE, URINE NEGATIVE (NEGATIVE); PROTEIN,URINE NEGATIVE (NEGATIVE); UGLUCOSE NEGATIVE (NEGATIVE); UROBILINOGEN,URINE 0.2 EU/dL (0.2)
[2021-10-09] MEDS ORDERED: METRONIDAZOLE 500MG/ NS 100ML 100 ML IV ONE (07:25)
--- NOTE | 2021-10-09 07:26 | NUR ---
NURSING SUP MADE AWARE OF BED ASSIGMENT NEEDED
[2021-10-09] MEDS ORDERED: METO25TA4 PO (07:27)
[2021-10-09] MEDS ORDERED: SIMV-46 PO (07:29)
[2021-10-09] MEDS ORDERED: QUET200T PO (07:29)
[2021-10-09] MEDS ORDERED: AMLO-212 PO (07:29)
[2021-10-09] MEDS ORDERED: ZOLP10TA2 PO (07:29)
[2021-10-09] MEDS ORDERED: LISI10TA29 PO (07:29)
[2021-10-09 07:43] LABS: BACTERIA,URINE 1+ /HPF (None Seen); SQUAMOUS EPITHELIAL CELL,UR Few /HPF (None Seen)
[2021-10-09] MEDS ORDERED: MORPHINE SULFATE INJ 2 MG/ML DISP.SYRIN ONE (09:01)
[2021-10-09] MEDS ORDERED: LEVE500T9 PO (09:45)
[2021-10-09] MEDS ORDERED: MAGNESIUM HYDROXIDE 30 ML UDC PO PRN (10:30)
[2021-10-09] MEDS ORDERED: ONDANSETRON HCL/PF 4 MG/2 ML VIAL IVP PRN (10:30)
[2021-10-09] MEDS ORDERED: ACETAMINOPHEN 325 MG TABLET PO PRN (10:30)
[2021-10-09] MEDS ORDERED: MAG HYDROX/AL HYDROX/SIMETH 30 ML UDC PO PRN (10:30)
[2021-10-09] MEDS ORDERED: Z GUARD REMEDY 4 OZ OINT TP PRN (11:00)
[2021-10-09] MEDS: AMLODIPINE BESYLATE 5 MG TABLET PO SCH (11:00)
[2021-10-09] MEDS ORDERED: AMLODIPINE BESYLATE 5 MG TABLET ONE (11:01)
[2021-10-09] MEDS: IV NS 0.9% 1,000 ML IV PRN ×2 (11:16→14:24)
--- NOTE | 2021-10-09 11:17 | NUR ---
WAITING FOR PHARMACY TO DELIVER TOPROL-XL 100 MG. FOLLOW UP CALL TO PHARM IS DONE.
[2021-10-09] MEDS: METOPROLOL SUCCINATE 50 MG TAB.SR.24H PO SCH (11:31)
[2021-10-09] MEDS: ZOSYN IVPB 3.375 G in IV D5W 50ml IV SCH ×2 (11:32→17:19)
--- NOTE | 2021-10-09 12:25 | NUR ---
BED ASSIGMENT OBTAINED FROM NURSING SUP, 310-1 NURSE WILL BE CRYSTAL
--- NOTE | 2021-10-09 12:38 | NUR ---
REPORT GIVEN TO NURSE ONEILL FOR CUONG
[2021-10-09] MEDS ORDERED: PIPERACILLIN /TAZOBACTAM 2.25 G in IV D5W 50 ML IV SCH (13:00)
[2021-10-09 13:35] VITALS: BP 160/107
--- NOTE | 2021-10-09 13:35 | NUR ---
MS VALUER NOTES RECEIVED PATIENT ENDORSED BY ER NURSE ELIANE VIA STRETCHER. PATIENT IS AWAKE AND A/O X3-4. ON ROOM AIR TOLERATING WELL. NO SOB NOTED. NOT IN DISTRESS. WITH IV ACCESS AT LEFT AC G20 WITH NS AT 75ML/HR INFUSING WELL. IV LINE IS INTACT AND PATENT. WITH COMPLAINTS OF PAIN ON BOTH LOWER ABDOMEN AT THE SCALE OF 8/10. COMFORT MEASURES PROVIDED. MADE COMFORTABLE ON BED. SAFETY MEASURES IN PLACED. CALL LIGHT WITHIN REACH. BED ON LOWEST LOCKED POSITION, SIDE RAILS UP X2. WILL CONTINUE TO MONITOR.
--- NOTE | 2021-10-09 13:40 | NUR ---
THE PATIENT IS TRANSFERED TO ROOM 310 IN STABLE CONDITION AND PER POLICY
[2021-10-09] MEDS: MORPHINE SULFATE INJ 2 MG/ML DISP.SYRIN IV PRN ×2 (14:34→22:13)
[2021-10-09 16:00] VITALS: BP 156/64
[2021-10-09] MEDS: clonazePAM 0.5 MG TABLET PO SCH (17:19)
[2021-10-09] MEDS: LEVETIRACETAM (250 MG) 250 MG TABLET PO SCH (17:19)
--- NOTE | 2021-10-09 18:32 | NUR ---
MS RN CLOSING NOTES PATIENT RESTING ON BED AND A/O X3-4. ON ROOM AIR TOLERATING WELL. NO SOB NOTED. NOT IN DISTRESS. WITH COMPLAINTS OF PAIN ON BOTH LOWER ABDOMEN AT THE SCALE OF 9/10. COMFORT MEASURES PROVIDED. WITH IV ACCESS AT LEFT AC G20 WITH IVF NS AT 75ML/HR INFUSING WELL. SAFETY MEASURES IN PLACED. CALL LIGHT WITHIN REACH. BED ON LOWEST LOCKED POSITION, SIDE RAILS UP X2. WILL ENDORSE TO NEXT SHIFT FOR CUONG.
--- NOTE | 2021-10-09 19:30 | NUR ---
MS RN OPENING NOTE RECEIVED PATIENT IN BED. A/OX3-4. NO S/S OF APPARENT DISTRESS ON ROOM AIR. DENIES PAIN AT THIS TIME. PATIENT IS AMBULATORY WITH STEADY GAITS, NOTED TO HAVE BLE EDEMA. LAC #20G RUNNING NS @75ML/HR. SAFETY IN PLACE. WILL CONTINUE WITH PATIENT CARE PLAN.
[2021-10-09 20:00] VITALS: BP 167/89
--- NOTE | 2021-10-09 20:53 | NUR ---
MS RN NOTE PATIENT BP INITIALLY 171/82. WHEN I PERSONALLY RECHECKED MANUALLY IT WAS 167/89. CALLED FOR [facility] DOCTOR, ALYSSA PEGUERO AND DIGITAL RESEARCH ANALYST ORDERED HYDRALAZINE 10 MG IV Q6 PRN FOR SBP >160. READ BACK ORDER. WILL CARRY OUT ORDER AND CONTINUE TO MONITOR PATIENT.
[2021-10-09] MEDS ORDERED: HEPARIN SODIUM, PORCINE 5000 UNITS/1 ML VIAL SQ SCH (21:00)
[2021-10-09] MEDS ORDERED: hydrALAZINE HCL IV 20 MG VIAL IV PRN (21:00)
[2021-10-09] MEDS: SIMVASTATIN 20 MG TABLET PO SCH (22:14)
[2021-10-09] MEDS: PANTOPRAZOLE 40 MG VIAL IV SCH (22:14)
[2021-10-09] MEDS: QUETIAPINE FUMARATE 100 MG TABLET PO SCH (22:14)
[2021-10-10] MEDS: ZOSYN IVPB 3.375 G in IV D5W 50ml IV SCH ×4 (00:11→18:07)
[2021-10-10] MEDS: MORPHINE SULFATE INJ 2 MG/ML DISP.SYRIN IV PRN (04:40)
--- NOTE | 2021-10-10 04:45 | NUR ---
MS RN NOTE BP- HR-87 THIS MORNING.
--- NOTE | 2021-10-10 06:05 | NUR ---
MS RN NOTE MRSA SWAB OBTAINED.
[2021-10-10 06:41] LABS: BASOPHILS % (AUTO) 0.1 % (0.0-2.0); EOSINOPHILS % (AUTO) 0.2 % (0.0-6.0); HEMATOCRIT 39 % (33-45); HEMOGLOBIN 13.1 g/dL (11.5-14.8); LYMPHOCYTES # (AUTO) 1.1 K/uL (0.8-4.8); MEAN CORPUSCULAR HGB CONC 34 g/dl (31.0-36.0); MEAN CORPUSCULAR VOLUME 98 fL (82-100); MONOCYTES # (AUTO) 1.1 K/uL (0.1-1.30); NEUTROPHILS # (AUTO) 9.9 K/uL (1.8-8.9); NEUTROPHILS % (AUTO) 81.7 % (43.0-81.0); PLATELET COUNT (AUTO) 127 K/uL (150-450); RED BLOOD CELL COUNT(AUTO) 3.91 MIL/uL (4.0-5.2); WHITE BLOOD COUNT (AUTO) 12.1 K/uL (4.3-11.0)
[2021-10-10 07:21] LABS: CALCIUM, SERUM 8.1 mg/dL (8.5-10.1); CREATININE 1.7 mg/dL (0.6-1.3); PHOSPHORUS 3.4 mg/dL (2.5-4.9); POTASSIUM 3.5 mmol/L (3.5-5.1)
--- NOTE | 2021-10-10 07:33 | NUR ---
MS RN CLOSING NO SIGNIFICANT CHANGE SINCE LAST ENDORSEMENT. REPORT GIVEN TO NANCY FOR CONTINUITY OF CARE.
[2021-10-10 08:00] VITALS: BP 119/70
--- NOTE | 2021-10-10 09:00 | NUR ---
m/s floorperson: md visit seen and examined by dr. ashton at this time. awaiting for gi (consult) to see her. pt aware. will continue to monitor.
[2021-10-10] MEDS: VENLAFAXINE XR 150 MG CAP.SR.24H PO SCH (09:38)
[2021-10-10] MEDS: LISINOPRIL (10MG) 10 MG TABLET PO SCH (09:38)
[2021-10-10] MEDS: clonazePAM 0.5 MG TABLET PO SCH ×2 (09:38→16:46)
[2021-10-10] MEDS: LEVETIRACETAM (250 MG) 250 MG TABLET PO SCH ×2 (09:38→16:47)
[2021-10-10] MEDS: FOLIC ACID 1 MG TABLET PO SCH (09:38)
[2021-10-10] MEDS: METOPROLOL SUCCINATE 50 MG TAB.SR.24H PO SCH (09:39)
[2021-10-10] MEDS: PANTOPRAZOLE 40 MG VIAL IV SCH ×2 (12:03→21:42)
[2021-10-10] MEDS: IV NS 0.9% 1,000 ML IV PRN (14:41)
[2021-10-10 16:00] VITALS: BP 133/75
[2021-10-10 16:47] LABS: OCCULT BLOOD STOOL POSITIVE (NEGATIVE)
[2021-10-10] MEDS: AMLODIPINE BESYLATE 5 MG TABLET PO SCH (16:47)
--- NOTE | 2021-10-10 19:10 | NUR ---
m/s tromper: notes bedside report given to chepe (rn) for continuity of care.
--- NOTE | 2021-10-10 19:34 | NUR ---
MS RN OPENING NOTE RECEIVED PATIENT IN BED. A/OX3-4. NO S/S OF APPARENT DISTRESS ON ROOM AIR. DENIES PAIN AT THIS TIME BUT C/O STOMACH UPSET. PATIENT IS AMBULATORY WITH STEADY GAITS, NOTED TO HAVE BLE EDEMA. LAC #20G RUNNING NS @75ML/HR. SAFETY IN PLACE. WILL CONTINUE WITH PATIENT CARE PLAN.
[2021-10-10 20:00] VITALS: BP 137/89
[2021-10-10] MEDS: SIMVASTATIN 20 MG TABLET PO SCH (21:46)
[2021-10-10] MEDS: QUETIAPINE FUMARATE 100 MG TABLET PO SCH (21:46)
[2021-10-11] MEDS: ZOSYN IVPB 3.375 G in IV D5W 50ml IV SCH ×5 (00:02→23:57)
[2021-10-11 07:12] LABS: BASOPHILS % (AUTO) 0.2 % (0.0-2.0); EOSINOPHILS % (AUTO) 0.2 % (0.0-6.0); HEMATOCRIT 37 % (33-45); HEMOGLOBIN 12.8 g/dL (11.5-14.8); LYMPHOCYTES # (AUTO) 1.4 K/uL (0.8-4.8); LYMPHOCYTES % (AUTO) 10.7 % (20.0-44.0); MEAN CORPUSCULAR HGB CONC 34 g/dl (31.0-36.0); MEAN CORPUSCULAR VOLUME 98 fL (82-100); MONOCYTES # (AUTO) 1.1 K/uL (0.1-1.30); MONOCYTES % (AUTO) 8.2 % (2.0-12.0); NEUTROPHILS # (AUTO) 10.4 K/uL (1.8-8.9); NEUTROPHILS % (AUTO) 80.7 % (43.0-81.0); PLATELET COUNT (AUTO) 126 K/uL (150-450); RED BLOOD CELL COUNT(AUTO) 3.79 MIL/uL (4.0-5.2); WHITE BLOOD COUNT (AUTO) 12.9 K/uL (4.3-11.0)
[2021-10-11 07:28] LABS: CALCIUM, SERUM 8.5 mg/dL (8.5-10.1); POTASSIUM 3.6 mmol/L (3.5-5.1)
--- NOTE | 2021-10-11 07:32 | NUR ---
REPAIRER WOOD FURNITURE CLOSING REPORT GIVEN TO ISIDRA FOR CONTINUITY OF CARE.
--- NOTE | 2021-10-11 07:45 | NUR ---
MS RN OPENING NOTE Patient in bed, asleep. A/O x 4. On room air breathing evenly and unlabored. No SOB or s/s of distress noted. IV access on LAC #20G infusing NS at 75 ml/hr and RAC #20G SL, intact and patent. Safety precautions in place: bed in low, locked position; siderails up x 2; call light within reach. Will continue to monitor.
[2021-10-11] MEDS: PANTOPRAZOLE 40 MG VIAL IV SCH ×2 (09:00→20:41)
[2021-10-11] MEDS: AMLODIPINE BESYLATE 5 MG TABLET PO SCH (09:01)
[2021-10-11] MEDS: clonazePAM 0.5 MG TABLET PO SCH ×2 (09:01→17:15)
[2021-10-11] MEDS: LISINOPRIL (10MG) 10 MG TABLET PO SCH (09:01)
[2021-10-11] MEDS: VENLAFAXINE XR 150 MG CAP.SR.24H PO SCH (09:01)
[2021-10-11] MEDS: FOLIC ACID 1 MG TABLET PO SCH (09:01)
[2021-10-11] MEDS: METOPROLOL SUCCINATE 50 MG TAB.SR.24H PO SCH (09:02)
[2021-10-11] MEDS: LEVETIRACETAM (250 MG) 250 MG TABLET PO SCH ×2 (09:02→17:15)
[2021-10-11 09:26] VITALS: BP 147/83
[2021-10-11] MEDS ORDERED: PEG 3350/NA SULF,BICARB,CL/KCL 4,000 ML BOTTLE PO ONE ×2 (15:00→18:00)
--- NOTE | 2021-10-11 15:00 | NUR ---
RN NOTE Golytely not due until 1800.
[2021-10-11 16:00] VITALS: BP 137/84
[2021-10-11] MEDS: IV NS 0.9% 1,000 ML IV PRN (19:16)
--- NOTE | 2021-10-11 19:33 | NUR ---
MS RN CLOSING NOTE Patient in bed, resting. A/O x 4, able to make needs known. Stable on room air breathing evenly and unlabored. No SOB or s/s of distress noted. IV access on LAC #20G infusing NS at 75 ml/hr. All needs attended to. Due meds given. Safety precautions maintained: bed in low, locked position; siderails up x 2; call light within reach. Will endorse to caustic cresylate shift superintendent nurse for CUONG.
--- NOTE | 2021-10-11 19:40 | NUR ---
MS RN OPENING NOTES RECEIVED PATIENT LAYING AWAKE IN BED. A/O X4. PATIENT WITH REGULAR AND UNLABORED BREATHING ON ROOM AIR, TOLERATED WELL. NO SIGNS AND SYMPTOMS OF DISTRESS NOTED AT THIS TIME. NO COMPLAINS OF PAIN OR DISCOMFORT AT THIS TIME. IV ACCESS LAC G #20 INFUSING NS @ 75 ML/HR. IV ACCESS PATENT AND INTACT. SAFETY PRECAUTIONS ENFORCED WITH BED LOCKED AND AT LOWEST POSITION. CALL LIGHT WITHIN REACH AT ALL TIMES. WILL CONTINUE TO MONITOR PATIENT.
[2021-10-11 20:00] VITALS: BP 129/81
[2021-10-11] MEDS: MUPIROCIN OINT 2% 22 GM TUBE NS SCH (20:42)
[2021-10-11] MEDS: SIMVASTATIN 20 MG TABLET PO SCH (21:12)
[2021-10-11] MEDS: QUETIAPINE FUMARATE 100 MG TABLET PO SCH (21:12)
[2021-10-12] MEDS: ZOSYN IVPB 3.375 G in IV D5W 50ml IV SCH ×4 (05:10→23:56)
[2021-10-12 06:43] LABS: BASOPHILS % (AUTO) 0.3 % (0.0-2.0); HEMATOCRIT 38 % (33-45); HEMOGLOBIN 12.9 g/dL (11.5-14.8); LYMPHOCYTES # (AUTO) 1.7 K/uL (0.8-4.8); LYMPHOCYTES % (AUTO) 16.5 % (20.0-44.0); MEAN CORPUSCULAR HGB CONC 34 g/dl (31.0-36.0); MEAN CORPUSCULAR VOLUME 99 fL (82-100); MONOCYTES # (AUTO) 0.9 K/uL (0.1-1.30); MONOCYTES % (AUTO) 8.8 % (2.0-12.0); NEUTROPHILS # (AUTO) 7.6 K/uL (1.8-8.9); NEUTROPHILS % (AUTO) 73.4 % (43.0-81.0); PLATELET COUNT (AUTO) 117 K/uL (150-450); RED BLOOD CELL COUNT(AUTO) 3.81 MIL/uL (4.0-5.2); WHITE BLOOD COUNT (AUTO) 10.3 K/uL (4.3-11.0)
--- NOTE | 2021-10-12 06:54 | NUR ---
MS RN CLOSING NOTES PATIENT STILL LAYING AWAKE IN BED. A/O X4. PATIENT WITH REGULAR AND UNLABORED BREATHING ON ROOM AIR, TOLERATED WELL. NO SIGNS AND SYMPTOMS OF DISTRESS NOTED AT THIS TIME. NO COMPLAINS OF PAIN OR DISCOMFORT AT THIS TIME. IV ACCESS LAC G #20 INFUSING NS @ 75 ML/HR. IV ACCESS PATENT AND INTACT. SAFETY PRECAUTIONS ENFORCED WITH BED LOCKED AND AT LOWEST POSITION. CALL LIGHT WITHIN REACH AT ALL TIMES. WILL ENDORSE CONTINUITY OF CARE TO DAY SHIFT NURSE.
[2021-10-12 07:04] LABS: CALCIUM, SERUM 8.3 mg/dL (8.5-10.1); CREATININE 1.9 mg/dL (0.6-1.3); POTASSIUM 3.1 mmol/L (3.5-5.1)
[2021-10-12 08:00] VITALS: BP 127/79
--- NOTE | 2021-10-12 08:01 | NUR ---
RN Opening Note Patient received in bed, AO x 4, denies distress observed, able to responds all stimuli. Skin is warm to touch, keep clean/dry, intact IV site. Patient denies active bleeding from rectal this morning. Kept elevated HOB for ensure air/aspiration precaution and remains lower position of the bed. call light within reach, will continue to monitor.
[2021-10-12] MEDS: LISINOPRIL (10MG) 10 MG TABLET PO SCH (09:00)
[2021-10-12] MEDS: AMLODIPINE BESYLATE 5 MG TABLET PO SCH (09:00)
[2021-10-12] MEDS: PANTOPRAZOLE 40 MG VIAL IV SCH ×2 (09:05→21:25)
[2021-10-12] MEDS: MUPIROCIN OINT 2% 22 GM TUBE NS SCH ×2 (09:09→21:24)
[2021-10-12] MEDS: POTASSIUM CL. PREMIX PERIPHER. 50 ML IV SCH ×3 (09:26→13:56)
[2021-10-12] MEDS: LEVETIRACETAM (250 MG) 250 MG TABLET PO SCH ×2 (13:53→17:06)
[2021-10-12] MEDS: METOPROLOL SUCCINATE 50 MG TAB.SR.24H PO SCH (13:54)
[2021-10-12] MEDS: VENLAFAXINE XR 150 MG CAP.SR.24H PO SCH (13:56)
[2021-10-12] MEDS: clonazePAM 0.5 MG TABLET PO SCH ×2 (13:58→17:06)
[2021-10-12] MEDS: FOLIC ACID 1 MG TABLET PO SCH (13:58)
[2021-10-12 16:00] VITALS: BP 137/74
[2021-10-12] MEDS: IV NS 0.9% 1,000 ML IV PRN (17:06)
--- NOTE | 2021-10-12 18:00 | NUR ---
RN Closing Note Patient is resting in bed, no distress observed. Respiratory even and unlabored on room air. Skin is warm to touch, keep clean/dry, intact IV site. Kept elevated HOB for ensure airway and aspiration precaution, Also lower position of the bed for safety. Call light within reach, all needs met. will endorse night time nanny.
--- NOTE | 2021-10-12 19:31 | NUR ---
MS RN OPENING NOTE PATIENT RECEIVED ASLEEP IN BED. A/OX4. LH #20 W/ NS @75ML/HR INTACT AND PATENT. NO S/S OF DISTRESS, BREATHING SYMMETRICAL. SAFETY MEASURES IN PLACE: BED AT LOWEST POSITION, RAILS UP X2, CALL [place] WITHIN REACH. WILL CONTINUE TO MONITOR PATIENT.
[2021-10-12 20:00] VITALS: BP 143/76
[2021-10-12] MEDS: SIMVASTATIN 20 MG TABLET PO SCH (21:25)
[2021-10-12] MEDS: QUETIAPINE FUMARATE 100 MG TABLET PO SCH (21:25)
[2021-10-13] MEDS: ZOSYN IVPB 3.375 G in IV D5W 50ml IV SCH ×3 (05:46→17:33)
--- NOTE | 2021-10-13 06:10 | NUR ---
MS RN CLOSING NOTE PATIENT AWAKE IN BED. A/OX4. NO S/S OF DISTRESS, BREATHING SYMMETRICALLY. LAC #20 NS 75 ML/HR INTACT AND PATENT. SAFETY MEASURES IN PLACE: BED AT LOWEST POSITION, RAILS UP X2, CALL [place] WITHIN REACH. WILL ENDORSE TO NEXT SHIFT FOR CUONG.
[2021-10-13 06:46] LABS: BASOPHILS % (AUTO) 0.5 % (0.0-2.0); EOSINOPHILS % (AUTO) 2.3 % (0.0-6.0); HEMATOCRIT 33 % (33-45); HEMOGLOBIN 11.3 g/dL (11.5-14.8); LYMPHOCYTES # (AUTO) 1.5 K/uL (0.8-4.8); LYMPHOCYTES % (AUTO) 19.4 % (20.0-44.0); MEAN CORPUSCULAR HGB CONC 34 g/dl (31.0-36.0); MEAN CORPUSCULAR VOLUME 99 fL (82-100); MONOCYTES # (AUTO) 0.8 K/uL (0.1-1.30); MONOCYTES % (AUTO) 10.3 % (2.0-12.0); NEUTROPHILS # (AUTO) 5.2 K/uL (1.8-8.9); NEUTROPHILS % (AUTO) 67.5 % (43.0-81.0); PLATELET COUNT (AUTO) 110 K/uL (150-450); RED BLOOD CELL COUNT(AUTO) 3.33 MIL/uL (4.0-5.2); WHITE BLOOD COUNT (AUTO) 7.6 K/uL (4.3-11.0)
[2021-10-13 07:33] LABS: CALCIUM, SERUM 7.9 mg/dL (8.5-10.1); CREATININE 1.6 mg/dL (0.6-1.3); POTASSIUM 3.4 mmol/L (3.5-5.1)
[2021-10-13 08:10] VITALS: BP 124/76
[2021-10-13] MEDS: clonazePAM 0.5 MG TABLET PO SCH ×2 (09:28→17:00)
[2021-10-13] MEDS: VENLAFAXINE XR 150 MG CAP.SR.24H PO SCH (09:28)
[2021-10-13] MEDS: FOLIC ACID 1 MG TABLET PO SCH (09:28)
[2021-10-13] MEDS: LEVETIRACETAM (250 MG) 250 MG TABLET PO SCH ×2 (09:28→17:00)
[2021-10-13] MEDS: AMLODIPINE BESYLATE 5 MG TABLET PO SCH (09:29)
[2021-10-13] MEDS: LISINOPRIL (10MG) 10 MG TABLET PO SCH (09:29)
[2021-10-13] MEDS: METOPROLOL SUCCINATE 50 MG TAB.SR.24H PO SCH (09:29)
[2021-10-13] MEDS: PANTOPRAZOLE 40 MG VIAL IV SCH (09:30)
[2021-10-13] MEDS: MUPIROCIN OINT 2% 22 GM TUBE NS SCH (09:32)
[2021-10-13] MEDS ORDERED: CIPR500T5 PO (09:48)
[2021-10-13] MEDS ORDERED: PANT40TA2 PO (09:48)
[2021-10-13] MEDS ORDERED: METR500T PO (09:48)
[2021-10-13] MEDS ORDERED: POTASSIUM CHLORIDE 20 MEQ TAB.PRT.SR PO ONE (10:00)
[2021-10-13 16:06] VITALS: BP 150/94
--- NOTE | 2021-10-13 17:34 | NUR ---
GPS/RN PT DISCHARGE HOME VIA LIFT ARRANGED BY CASE MANAGEMENT. EXIT CARE ADN PRESCRIPTIONS PROVIDED. VSS, AMBULATORY. PROPERTY RETURNED. H/L REMOVED
== END 2021-10-13 17:59 | disposition home or self-care (01) | DRG 377 ==
LOC: ER 04:13 → TRANSITION 10:32 → TELE 12:28 → MED 13:29
PROVIDERS: ADMIT Nurse Practitioner Acute Care; ATTEND Internal Medicine
PROC: 0DBN8ZX Excision of Sigmoid Colon, Via Natural or Artificial Opening Endoscopic, Diagnostic (ICD-10-PCS; principal; 2021-10-12)
PROC: 0DB58ZX Excision of Esophagus, Via Natural or Artificial Opening Endoscopic, Diagnostic (ICD-10-PCS; 2021-10-12)
PROC: 0DB68ZX Excision of Stomach, Via Natural or Artificial Opening Endoscopic, Diagnostic (ICD-10-PCS; 2021-10-12)
DX: K57.31 Diverticulosis of large intestine without perforation or abscess with bleeding (principal); N17.0 Acute kidney failure with tubular necrosis; K55.9 Vascular disorder of intestine, unspecified; Q61.3 Polycystic kidney, unspecified; F20.0 Paranoid schizophrenia; I25.10 Atherosclerotic heart disease of native coronary artery without angina pectoris; E78.5 Hyperlipidemia, unspecified; F32.A Depression, unspecified; I50.9 Heart failure, unspecified; E66.9 Obesity, unspecified; D64.9 Anemia, unspecified; K59.00 Constipation, unspecified; G40.909 Epilepsy, unspecified, not intractable, without status epilepticus; I89.0 Lymphedema, not elsewhere classified; J44.9 Chronic obstructive pulmonary disease, unspecified; Z86.19 Personal history of other infectious and parasitic diseases; Z68.34 Body mass index [BMI] 34.0-34.9, adult; Z87.891 Personal history of nicotine dependence; F10.21 Alcohol dependence, in remission; K29.70 Gastritis, unspecified, without bleeding; I11.0 Hypertensive heart disease with heart failure; Z20.822 Contact with and (suspected) exposure to COVID-19
CPT/HCPCS: 36415; 80048-TC; 80076-TC; 81001; 82272-TC; 83690-TC; 83735-TC; 84100-TC; 84484-TC; 85025-TC; 85730-TC; 87081-TC; C9113; C9803; G0378; J0360; J2270; J2405; J2543; J2704; J3480; J3490; J7030; J7060; Q9967